=== PATIENT | female | born 1945 | race Caucasian/White ===

== ENCOUNTER 2021-12-11 12:40 | Outpatient (CLI) | payer MEDICARE, SELFPAY ==
--- NOTE | 2021-12-11 | MM_ITS ---
WS: [id number] BILATERAL 3D TOMOSYNTHESIS DIGITAL SCREENING MAMMOGRAPHY WITH CAD CLINICAL INFORMATION: SCREEN HISTORY: Screening mammogram. No current complaints. COMPARISON: February 09, 2020 TECHNIQUE: Bilateral CC and MLO views. FINDINGS: Scattered fibroglandular densities bilaterally. Increasing slightly spiculated 1.8 cm asymmetric dens ity upper outer RIGHT breast. Recommend RIGHT breast diagnostic mammography with spot compression vie ws and ultrasound for further evaluation. Similar-appearing Punctate calcifications. Secretory calcif ications. LEFT breast appears unchanged. MM/[place] [id number] IMPRESSION: BI-RADS: 0-Incomplete: Need additional imaging evaluation FOLLOW UP: Need Additional Imaging Recommend RIGHT breast diagnostic mammography with spot compression views and u ltrasound for further evaluation.
== END 2021-12-11 12:41 | disposition home or self-care (01) ==
LOC: RAD 12:41
PROVIDERS: PCP Family Medicine; Visit Provider Nurse Practitioner Family
DX: Z12.31 Encounter for screening mammogram for malignant neoplasm of breast (principal)
CPT/HCPCS: 77063; 77067

== ENCOUNTER 2022-01-18 09:57 | Outpatient (CLI) | payer MEDICARE, SELFPAY ==
--- NOTE | 2022-01-18 10:35 | MM_ITS ---
WS: [id number] RIGHT 3D TOMOSYNTHESIS DIGITAL MAMMOGRAPHY WITH CAD CLINICAL INFORMATION: ABNORMAL MAMMO COMPARISON: Screening mammography dating back to 2011. TECHNIQUE: 3 views of the right breast were obtained. FINDINGS: Scattered fibroglandular densities of the right breast. Previously described slightly spiculated lesi on upper outer quadrant RIGHT breast persistent on spot compression views. Ultrasound described below . ULTRASOUND BREAST RIGHT TECHNIQUE: Ultrasound right breast focused area of concern. CLINICAL INFORMATION: ABNORMAL MAMMO FINDINGS: Ultrasound upper outer quadrant RIGHT breast. At the 10:00 position 4 cm from the nipple is an irregu lar shadowing ill-defined hypoechoic lesion measuring 6.7 x 7.2 x 9.5 mm. This is taller than wide an d has a suspicious appearance in some planes but indeterminant. Recommend further evaluation with ult rasound-guided biopsy for more definitive assessment. Incidental simple cyst at the 12:00 position 4 cm from the nipple measuring 2 mm. Additional incident al dense parenchymal tissue or fibrous ridging at the 11:00 position 2 cm from the nipple. MM/[place] [id number] IMPRESSION: BI-RADS: 4-Suspicious Finding-Biopsy Should Be Considered FOLLOW UP: US Guided Biopsy Recommended Recommend ultrasound-guided biopsy of the above-described lesion.
== END 2022-01-18 09:58 | disposition home or self-care (01) ==
PROVIDERS: PCP Family Medicine; Visit Provider Nurse Practitioner Family
DX: R92.8 Other abnormal and inconclusive findings on diagnostic imaging of breast (principal); N63.11 Unspecified lump in the right breast, upper outer quadrant
CPT/HCPCS: 76642; 77061; G0279

== ENCOUNTER 2022-02-19 12:38 | Outpatient (CLI) | payer MEDICARE, SELFPAY ==
--- NOTE | 2022-02-19 13:02 | US_ITS ---
WS: [id number] ULTRASOUND-GUIDED RIGHT BREAST BIOPSY CLINICAL INFORMATION: ABNORMAL MAMMO OF R BREAST FINDINGS: The procedure including risks, benefits, and complications were discussed with the patient who agreed to proceed. Using sterile technique patient was prepped and draped in the usual sterile fashion. Aft er 1% lidocaine utilizing real-time ultrasound guidance 5 14-gauge cores were obtained of the RIGHT b reast lesion at the 10 o'clock position. Subsequently a titanium clip was placed in the biopsy cavity . No immediate complications. PATHOLOGY DEMONSTRATES A. Breast, right, 10 o'clock, 4 cm from nipple, ultrasound-guided biopsy: - Benign breast tissue with fibrocystic changes. - No malignancy identified. US/[place] [id number] IMPRESSION: 1. Uncomplicated ultrasound-guided RIGHT breast biopsy. 2. The pathology demonstrates benign breast tissue with fibrocystic changes. BI-RADS: 2-Benign FOLLOW UP: 1 Year Follow-up
== END 2022-02-19 12:39 | disposition home or self-care (01) ==
LOC: RAD 12:43
PROVIDERS: PCP Family Medicine; Visit Provider Nurse Practitioner Family
DX: R92.8 Other abnormal and inconclusive findings on diagnostic imaging of breast (principal)
CPT/HCPCS: 19083; 88305